=== PATIENT | female | born 1955 | race Two or more races ===

== ENCOUNTER 2017-08-14 09:37 | Emergency (ER) | payer OTHER ==
[~2017-08-14] VITALS: Ht 170.2 cm; Wt 90.7 kg
[2017-08-14] MEDS ORDERED: NORVASC5 MG (09:56)
[2017-08-14] MEDS ORDERED: CYCLOBENZAPRINE10 MG PO (13:59)
[2017-08-14] MEDS ORDERED: DICLOFENAC SODI50 MG PO (13:59)
== END 2017-08-14 17:53 | disposition home or self-care (01) ==
LOC: ER 09:37
DX: M54.2 Cervicalgia (principal)

== ENCOUNTER 2021-04-11 08:54 | Emergency (ER) | payer OTHER ==
[~2021-04-11] VITALS: Ht 167.6 cm; Wt 87.1 kg
[~2021-04-11 08:54] MED LIST: CYCLOBENZAPRINE10 MG PO; DICLOFENAC SODI50 MG PO; NORVASC5 MG
[2021-04-11] MEDS ORDERED: TOPROL XL25 M1 PO (09:03)
[2021-04-11] MEDS ORDERED: STEGLATRO5 MG PO (09:03)
[2021-04-11] MEDS ORDERED: JANUMET 50-1,01 EACH PO (09:04)
[2021-04-11] MEDS ORDERED: ATACAND HCT 161 EACH PO (09:04)
[2021-04-11] MEDS ORDERED: SYNTHROID50 MCG PO (09:04)
[2021-04-11] MEDS ORDERED: CYCLOBENZAPRINE10 MG PO (09:40)
== END 2021-04-11 12:05 | disposition home or self-care (01) ==
LOC: ER 08:54
DX: M54.2 Cervicalgia (principal); M62.838 Other muscle spasm

== ENCOUNTER 2021-05-05 00:34 | Emergency (ER) | payer OTHER ==
[~2021-05-05] VITALS: Ht 167.6 cm; Wt 88.5 kg
[~2021-05-05 00:34] MED LIST changes: +ATACAND HCT 161 EACH PO; +JANUMET 50-1,01 EACH PO; +STEGLATRO5 MG PO; +SYNTHROID50 MCG PO; +TOPROL XL25 M1 PO
[2021-05-05] MEDS ORDERED: REGLAN5 MG/5 ML (00:58)
[2021-05-05] MEDS ORDERED: PEPCID40 MG PO (07:03)
[2021-05-05] MEDS ORDERED: ZOFRAN4 MG PO (07:03)
== END 2021-05-05 08:10 ==
LOC: ER 00:34
DX: R10.13 Epigastric pain (principal); I10 Essential (primary) hypertension; E11.9 Type 2 diabetes mellitus without complications; Z79.84 Long term (current) use of oral hypoglycemic drugs